=== PATIENT | female | born 1990 | race Caucasian/White ===

== ENCOUNTER 2019-12-10 10:48 | Outpatient (CLI) | payer MEDICAID ==
--- NOTE | 2019-12-10 11:38 | Non Stress Test Report ---
Non Stress Test Datetime Report Generated by CPN: 12/10/2019 11:37 DEMOGRAPHIC EGA NST: 36.5 MONITORING Monitor Explained: Monitor Explained; Test Explained; Patient Verbalized Understanding Time on Monitor: 12/10/2019 11:05 Time off Monitor: 12/10/2019 11:26 NST Duration: 21 NST INTERVENTIONS NST Interventions: PO Hydration Physician Notified NST: J.Islas, CNM BABY A: [id number] BABY A Movement : Present Contraction Frequency : None FHR Baseline : 150 Accelerations : 15X15 Decelerations : None Variability : Moderate 6-25bpm NST Review: Meets Criteria for Reactive NST NST Review and Verified By : Ida Camp RNC NST Results: Reactive NST REPORT Report Trigger: Send Report
== END 2019-12-10 11:38 | disposition home or self-care (01) ==
LOC: LC 10:48
PROVIDERS: ATTEND Obstetrics & Gynecology
DX: O24.415 Gestational diabetes mellitus in pregnancy, controlled by oral hypoglycemic drugs (principal); Z3A.36 36 weeks gestation of pregnancy
CPT/HCPCS: 59025; 87081

== ENCOUNTER 2020-01-07 14:57 | Outpatient (CLI) | payer MEDICAID ==
--- NOTE | 2020-01-07 15:54 | Non Stress Test Report ---
Non Stress Test Datetime Report Generated by CPN: 01/07/2020 15:54 DEMOGRAPHIC EGA NST: 40.5 INDICATION Indication for Study (NST) Other: GDM VITAL SIGNS Temperature - NST: 98.4 Pulse - NST: 74 RESP - NST: 18 NBPSYS NST: 106 NBPDIA NST: 56 MONITORING Monitor Explained: Monitor Explained; Test Explained; Patient Verbalized Understanding Time on Monitor: 01/07/2020 15:23 Time off Monitor: 01/07/2020 15:44 NST Duration: 21 NST INTERVENTIONS NST Interventions: None Physician Notified NST: P.Liriano,CNM BABY A: [id number] BABY A Movement : Present Contraction Frequency : 3-4 FHR Baseline : 145 Accelerations : 15X15 Decelerations : None Variability : Moderate 6-25bpm NST Review: Meets Criteria for Reactive NST NST Review and Verified By : Sean Landeros RN NST Results: Reactive NST REPORT Report Trigger: Send Report
== END 2020-01-07 15:49 | disposition home or self-care (01) ==
LOC: LC 14:57
PROVIDERS: ATTEND Obstetrics & Gynecology Gynecology
DX: O24.419 Gestational diabetes mellitus in pregnancy, unspecified control (principal); Z3A.40 40 weeks gestation of pregnancy
CPT/HCPCS: 59025

== ENCOUNTER 2020-01-08 06:05 | Inpatient (IN) | payer MEDICAID ==
[2020-01-08 07:10] LABS: APPEARANCE,URINE CLOUDY; BILIRUBIN,URINE NEGATIVE (NEGATIVE); COLOR,URINE YELLOW; GLUCOSE, URINE NEGATIVE (NEGATIVE); KETONES,URINE NEGATIVE (NEGATIVE); LEUKOCYTE ESTERASE,URINE SMALL (NEGATIVE); NITRITE,URINE NEGATIVE (NEGATIVE); PROTEIN,URINE NEGATIVE (NEGATIVE); URINE SPECIFIC GRAVITY 1.018; UROBILINOGEN,URINE NEGATIVE mg/dL (<2.0)
[2020-01-08 07:49] LABS: URINE AMPHETAMINES SCREEN NEGATIVE; URINE BARBITURATES SCREEN NEGATIVE; URINE BENZODIAZEPINES SCREEN NEGATIVE; URINE COCAINE SCREEN NEGATIVE; URINE METHADONE SCREEN NEGATIVE; URINE PHENCYCLIDINE SCREEN NEGATIVE
[2020-01-08 07:55] LABS: URINE MARIJUANA (THC) SCREEN UNCONFIRMED POSITIVE
[2020-01-08] MEDS ORDERED: ROPIVACAINE HCL 0.2% INJ/PF (2 MG/ML) 20 ML SDV ONE (08:15)
[2020-01-08] MEDS ORDERED: MISOPROSTOL 0.2 MG TABLET ONE (08:15)
[2020-01-08] MEDS ORDERED: FENTANYL/BUPIVACAINE/NS/PF 300 MCG/150 ML RTUINJ EPI ONE (08:15)
[2020-01-08] MEDS ORDERED: OXYTOCIN/0.9 % SODIUM CHLORIDE 30 UNIT/500 ML RTUINJ ONE (08:15)
[2020-01-08] MEDS ORDERED: LIDOCAINE 1% INJ-PF (10 MG/ML) 30 ML SDV ONE (08:15)
[2020-01-08] MEDS ORDERED: EPHEDRINE SULFATE INJ 50 MG/1 ML AMPULE ONE (08:15)
[2020-01-08] MEDS ORDERED: RINGERS SOLUTION,LACTATED 1,000 ML IV ONE (08:25)
[2020-01-08] MEDS ORDERED: RINGERS SOLUTION,LACTATED 1,000 ML IV PRN (08:25)
[2020-01-08 09:19] LABS: ABSOLUTE BASOPHILS # (AUTO) 0.1 10^3/uL (0.0-0.2); ABSOLUTE LYMPHOCYTES (AUTO) 1.3 10^3/uL (0.5-4.7); ABSOLUTE MONOCYTES (AUTO) 0.8 10^3/uL (0.1-1.4); ABSOLUTE NEUT (AUTO) 15.6 10^3/uL (1.7-8.2); BASOPHILS % (AUTO) 0.5 % (0-2); EOSINOPHILS % (AUTO) 0.2 % (0-6); HEMATOCRIT 38.9 % (36.0-47.0); HEMOGLOBIN 13.2 g/dL (12.0-15.5); LYMPHOCYTES % (AUTO) 7.2 % (13-45); MEAN CORPUSCULAR VOLUME 86 fl (80-97); MONOCYTES % (AUTO) 4.6 % (3-13); PLATELET COUNT 168 10^3/uL (150-450); RED BLOOD COUNT 4.55 10^6/uL (3.72-5.28); RED CELL DISTRIBUTION WIDTH 15.9 % (11.5-14.0); SEGMENTED NEUTROPHILS % (AUTO) 87.5 % (42-78); TOTAL CELLS COUNTED % (AUTO) 100 %; WHITE BLOOD COUNT 17.8 10^3/uL (4.0-10.5)
--- NOTE | 2020-01-08 09:23 | Admission Physical ---
Datetime Report Generated by CPN: 01/08/2020 09:22 CURRENT ADMISSION Chief Complaint: Uterine Contractions Indication for Induction: Not Applicable Admit Impression : Postterm, Intrauterine ; Active Labor Admit Plan: Admit to Unit; Initiate Labor Protocol Admit Plan- Other: GBS neg GDMA2, glyburide 2.5mg ALLERGIES Medication Allergies: No Medication Allergies: No Known Allergies (01/08/2020) Latex: No Latex Allergies OBSTETRICAL HISTORY EDC: 01/02/2020 00:00 : 3 Para: 1 Term: 1 SAB: 1 Gestational Diabetes: Yes Rh Sensitization: No Incompetent Cervix: No LETICIA: No Infertility: No ART Treatment: No Uterine Anomaly: No IUGR: No Hx Previous C/S: No Macrosomia: No Hx Loss/Stillborn: No PIH: No Hx : No Placenta Previa/Abruption: No Depression/PP Depression: No PTL/PROM: No Post Hemorrhage: No Current Procedures: Ultrasound; NST Obstetrical History Comments: G1-11/12/2013, Vaginal, Male, 41weeks G2-SAB 06/14/2018 G3-Current SEE RECORDS Alcohol: No Marijuana : No Cocaine: No Other Illicit Drugs: No Cigarettes: Current Everyday Smoker. [id number] Cigarette Frequency: 5 - 10 per day Advised to Stop: Yes MEDICAL HISTORY Diabetes: Yes Diabetes Type: Gestational Diabetes Blood Transfusion: No Pulmonary Disease (Asthma, TB): No Breast Disease: No Hypertension: No Chemistry Quality Control Technician Surgery: No Heart Disease: No Hosp/Surgery: No Autoimmune Disorder: No Anesthetic Complications: No Kidney Disease: No Abnormal Pap Smear: No Neuro/Epilepsy: No Psychiatric Disorders: No Other Medical Diseases: No Hepatitis/Liver Disease: No Significant Family History: No Varicosities/Phlebitis: No Trauma/Violence : No Thyroid Dysfunction: No INFECTIOUS HISTORY Gonorrhea: No Genital Herpes: No Chlamydia: No Tuberculosis: No Syphilis: No Hepatitis: No HIV/AIDS Exposure: No Rash or Viral Illness: No HPV: No PHYSICAL EXAM General: Normal HEENT: Deferred Neurologic: Normal Thyroid: Deferred Heart: Normal Lungs: Normal Breast: Deferred Back: Normal Abdomen: Normal Genitourinary Exam: Normal Extremities: Normal DTRs: Deferred Pelvic Type: Adequate Vital Signs: Reviewed VAGINAL EXAM Dilatation: 4 Effacement: 60 Station: -2 FETUS A EGA: 40.6 Monitoring: External US FHR- Baseline: 135 Variability: Moderate 6-25bpm Accelerations: 15X15 Decelerations: Late FHR Category: Category II FHR Comments: occasional lates Presentation: Vertex Admit Comment: Plans epidural GDM A2 on Glyburide 2.5mg q hs GBS neg Morbid obesity BMI 48 +THC at NOB Smoker Rubella non-immune PLANS FOR LABOR AND DELIVERY Labor and Delivery: None Pain Management: Medications Feeding Preference: Formula INFORMED CONSENT Assignment: Jennifer Gordillo MD Signature: with User ID: Catrachita : with User ID: [email or web address]
--- NOTE | 2020-01-08 12:43 | Delivery Summary ---
Del Sum A-C Datetime Report Generated by CPN: 01/08/2020 12:42 DELIVERY PERSONNEL DELIVERY PERSONNEL: [id number] Delivery Doctor:: Amaris Cortez CNM Labor and Delivery Nurse:: Cheryl Knowles RNadoption agent Nurse:: Sarah Beth Balbuena RN Nursery Nurse:: Marybeth Valenzuela RN Riveter/TRAVELING SECRETARY: Sherron Ly CNA II MATERNAL INFORMATION Delivery Anesthesia: Epidural Medications After Delivery: Pitocin 30 Units in 500ml NS/D5W Estimated Blood Loss (ml): 150 Maternal Complications: None LABOR SUMMARY EDC: 01/02/2020 00:00 No. Babies in Womb: 1 Attempted: No Labor Anesthesia: Epidural LABOR INFORMATION Reason for Induction: Not Applicable Complete Dilatation: 01/08/2020 11:25 Cervical Ripening Agents: Other Oxytocin: N/A Group B Beta Strep: 1 NO GROUP B STREPTOCOCCUS RECOVERED Steroids Given: None Reason Steroids Not Administered: Not Applicable MEMBRANES Membranes Rupture Method: Spontaneous Rupture of Membranes: 01/08/2020 10:31 Length of Rupture (hr): 1.37 Amniotic Fluid Color: Moderate Meconium Amniotic Fluid Amount: Small STAGES OF LABOR Stage 2 hr: 0 Stage 2 min: 28 Stage 3 hr: 0 Stage 3 min: 20 VAGINAL DELIVERY Episiotomy: None Laceration #1: None Laceration Extension #1: N/A Laceration Repair: Not Applicable Sharps Count Correct: Yes BABY A INFORMATION Infant Delivery Date/Time: 01/08/2020 11:53 Method of Delivery: Vaginal Nurse Controlled Delivery: No Born in Route : No : N/A Forceps: N/A Vacuum Extraction: N/A Shoulder Dystocia : No PRESENTATION/POSITION BABY A Presentation: Cephalic Cephalic Presentation: Vertex Vertex Position: Right Occipital Anterior Breech Presentation: N/A PLACENTA INFORMATION BABY A Placenta Delivery Time : 01/08/2020 12:13 Placenta Method of Delivery: Spontaneous Placenta Status: Delivered SCORES BABY A Heart Rate 1 min: >100 bpm Resp Effort 1 min: Good Cry Reflex Irritability 1 min: Cough or Sneeze or Pulls Away Muscle Tone 1 min: Active Motion Color 1 min: Blue/Pale SCORE 1 MIN: 8 Heart Rate 5 min: >100 bpm Resp Effort 5 min: Good Cry Reflex Irritability 5 min: Cough or Sneeze or Pulls Away Muscle Tone 5 min: Active Motion Color 5 min: Body [place], Extremities Blue SCORE 5 MIN: 9 INFANT INFORMATION BABY A Gestational Age at Delivery: 40.0 Gestational Status: Full Term- 39- 40.6 Weeks Infant Outcome : Liveborn Infant Condition : Stable Infant Sex: Female IDENTIFICATION BABY A Infant Verification Date/Time: 01/08/2020 12:02 ID Band Number: [id number] Mother's Name Verified: Yes RN Verifying Infant: Michael Eleni RN Additional Verifying Personnel: Golden Ly BUSINESS ETHICS PROFESSOR CORD INFORMATION BABY A No. Cord Vessels: 3 Nuchal Cord : Around Neck x2, Loose Nuchal Cord- Other: Triple Nuchal plus Body cord Cord Blood Taken: Yes-For Storage (Mom's Blood type +) ASSESSMENT BABY A Infant Complications: None Physical Findings at Delivery: Within Normal Limits Respirations: Appears Normal Transferred To: [facility] BABY B INFORMATION : N/A SIGNATURES : I was personally available for consultation and serving as supervising physician for the MLP.
[2020-01-08] MEDS ORDERED: ZOLPIDEM TARTRATE 5 MG TABLET PO PRN (12:46)
[2020-01-08] MEDS ORDERED: PROMETHAZINE HCL 25 MG SUPP.RECT PR PRN (12:46)
[2020-01-08] MEDS ORDERED: DIPHENHYDRAMINE HCL 25 MG CAPSULE PO PRN (12:46)
[2020-01-08] MEDS ORDERED: DIBUCAINE 1% OINTMENT 28 GM TP PRN (12:46)
[2020-01-08] MEDS ORDERED: OXYTOCIN/0.9 % SODIUM CHLORIDE 30 UNIT/500 ML RTUINJ IV PRN (12:46)
[2020-01-08] MEDS ORDERED: PROMETHAZINE HCL 25 MG TABLET PO PRN (12:46)
[2020-01-08] MEDS ORDERED: PROMETHAZINE HCL INJ 25 MG/1 ML VIAL IV PRN (12:46)
[2020-01-08] MEDS ORDERED: GLYCERIN/WITCH HAZEL LEAF 1 EACH MED..WIPE TP PRN (12:46)
[2020-01-08] MEDS ORDERED: MAGNESIUM HYDROXIDE SUSP 30 ML UDCUP PO PRN (12:46)
[2020-01-08] MEDS ORDERED: DIPH/PERTUSS(ACELL)/TETANUS VAC/PF 0.5 ML SYR (>=10YO) IM PRN (12:46)
[2020-01-08] MEDS ORDERED: MEASLES,MUMPS&RUBELLA VACC/PF 0.5 ML VIAL SUBCUT PRN (12:46)
[2020-01-08] MEDS ORDERED: BENZOCAINE/MENTHOL AEROSOL SPRAY 56 ML TOP PRN (12:46)
[2020-01-08] MEDS ORDERED: PSEUDOEPHEDRINE HCL 30 MG TABLET PO PRN (12:46)
[2020-01-08] MEDS: IBUPROFEN 800 MG TABLET PO SCH ×2 (14:55→22:15)
[2020-01-08] MEDS: DOCUSATE SODIUM 100 MG CAPSULE PO SCH (17:38)
[2020-01-08] MEDS: FERROUS SULFATE 325 MG TABLET PO SCH (17:38)
[2020-01-08] MEDS: NYSTATIN/TRIAMCIN CREAM 15 GM TP SCH ×2 (18:36→22:16)
[2020-01-08] MEDS: FAMOTIDINE 20 MG TABLET PO SCH (22:15)
[2020-01-09] MEDS: IBUPROFEN 800 MG TABLET PO SCH ×2 (05:49→14:35)
[2020-01-09 08:22] VITALS: BP 131/63
[2020-01-09 08:36] LABS: HEMATOCRIT 36.4 % (36.0-47.0); HEMOGLOBIN 12.3 g/dL (12.0-15.5); MEAN CORPUSCULAR HEMOGLOBIN 28.9 pg (27.0-33.4); MEAN CORPUSCULAR HGB CONC 33.8 g/dL (32.0-36.0); MEAN CORPUSCULAR VOLUME 86 fl (80-97); PLATELET COUNT 181 10^3/uL (150-450); RED BLOOD COUNT 4.26 10^6/uL (3.72-5.28); RED CELL DISTRIBUTION WIDTH 15.6 % (11.5-14.0); WHITE BLOOD COUNT 15.3 10^3/uL (4.0-10.5)
[2020-01-09] MEDS: FAMOTIDINE 20 MG TABLET PO SCH (09:49)
[2020-01-09] MEDS: FERROUS SULFATE 325 MG TABLET PO SCH ×2 (09:49→17:49)
[2020-01-09] MEDS: DOCUSATE SODIUM 100 MG CAPSULE PO SCH ×2 (09:49→17:49)
[2020-01-09] MEDS: NYSTATIN/TRIAMCIN CREAM 15 GM TP SCH ×3 (09:49→17:58)
[2020-01-09] MEDS ORDERED: PRENATAL VITAMIN W DHA CAPSULE PO SCH (10:00)
--- NOTE | 2020-01-09 11:55 | PDOC PROGRESS REPORT ---
Subjective-OB Progress Note for:: 01/09/20 Subjective: 29yo G3 now P2 s/p ppd 1. Reports pain well controlled by medication, ambulating and voiding without difficulty no concerns today. Physical Exam (OB) Vital Signs: Temp Pulse Resp BP Pulse Ox 97.9 F 73 16 131/63 H 100 01/09/20 08:09 01/09/20 08:09 01/09/20 08:09 01/09/20 08:09 01/09/20 08:09 Intake & Output 01/08/20 01/09/20 01/10/20 06:59 06:59 06:59 Intake Total 400 Balance 400 Weight 138.1 kg - General General Appearance: Appears well In distress: None - PIH/Pre-Eclampsia DTR's: 2 + Clonus: Negative Headache: Absent Epigastric Pain: No Visual Changes: No - Maternal Morbidity 59. Maternal Morbidity (serious complications experinced by the mother associated with labor and delivery: None of the above - Episiotomy/Laceration Site Condition: N/A - Lochia Lochia Amount: Small 10-25 ml Lochia Color: Rubra/Red - Abdomen Description: Soft, Round Hernia Present: No Fundal Description: Firm, Midline Fundal Height: u/u - u/2 - Respiratory Respiratory Status: No respiratory distress - Abdominal Inspection: Normal - Genitourinary Female External exam: Normal - Extremities Upper extremity: Normal inspection Lower extremities: Normal inspection - Neurological Cognition: Normal Orientation: AAOx4 - Psychological Associated symptoms: Normal affect, Normal mood Objective-Diagnostic Laboratory: 01/09/20 08:04 01/09/20 08:04 WBC 15.3 H RBC 4.26 Hgb 12.3 Hct 36.4 MCV 86 MCH 28.9 MCHC 33.8 RDW 15.6 H Plt Count 181 Assessment and Plan(PN) - Assessment and Plan (1) Drug use affecting Qualifiers: Trimester: unspecified trimester Qualified Code(s): O99.320 - Drug use complicating , unspecified trimester Is this a current diagnosis for this admission?: Yes Plan: cessation encouraged, discharge planning consult placed (2) Active labor at term Is this a current diagnosis for this admission?: Yes Plan: delivered (3) GDM, class A2 Is this a current diagnosis for this admission?: Yes Plan: delivered, fasting pp glucose as indicated by guidelines (4) Obesity affecting in third trimester Is this a current diagnosis for this admission?: Yes Plan: delivered (5) Post-dates , delivered, current hospitalization Is this a current diagnosis for this admission?: Yes Plan: delivered (6) Vaginal delivery Is this a current diagnosis for this admission?: Yes Plan: routine pp care - Time Spent with Patient Time with patient: Less than 15 minutes Smoking Education Provided: Over 3 minutes Medications reviewed and adjusted accordingly: Yes - Disposition Anticipated Discharge Disposition: Home, Self Care Anticipated Discharge Timeframe: within 24 hours
--- NOTE | 2020-01-09 16:51 | PDOC DISCHARGE SUMMARY ---
Impression - Admit/DC Date/PCP Admission Date/Primary Care Provider: 01/08/20 07:34 RENETTA CHAN MD Discharge Date: 01/09/20 - pt desires early discharge baby discharged by peds - Discharge Diagnosis (1) Drug use affecting Is this a current diagnosis for this admission?: Yes (2) Active labor at term Is this a current diagnosis for this admission?: Yes (3) GDM, class A2 Is this a current diagnosis for this admission?: Yes (4) Obesity affecting in third trimester Is this a current diagnosis for this admission?: Yes (5) Post-dates , delivered, current hospitalization Is this a current diagnosis for this admission?: Yes (6) Vaginal delivery Is this a current diagnosis for this admission?: Yes - Assessment Summary: ppd 1 stable and desires early discharge, understands warning s/s and reasons to rtc/[facility] - Additional Information Resuscitation Status: Full Code Discharge Diet: As Tolerated, Regular Discharge Activity: Activity As Tolerated, Balance Activity w/Rest, No Lifting Over 10 Pounds, Pelvic Rest, No tub bath, Walk Frequently Referrals: RENETTA CHAN MD [Primary Care Provider] - Prescriptions: Ibuprofen [Motrin 800 mg Tablet] 800 mg PO Q8HP PRN #20 tablet PRN Reason: Abdominal Cramping Home Medications: No.137/Iron/Folic Acd [ Vitamin Tablet] 1 each PO DAILY 11/10/13 Ibuprofen [Motrin 800 mg Tablet] 800 mg PO Q8HP PRN #20 tablet 01/09/20 Hospital Course 59. Maternal Morbidity (serious complications experinced by the mother associated with labor and delivery: None of the above Results Laboratory Results: WBC 15.3 10^3/uL (4.0-10.5) H 01/09/20 08:04 RBC 4.26 10^6/uL (3.72-5.28) 01/09/20 08:04 Hgb 12.3 g/dL (12.0-15.5) 01/09/20 08:04 Hct 36.4 % (36.0-47.0) 01/09/20 08:04 MCV 86 fl (80-97) 01/09/20 08:04 MCH 28.9 pg (27.0-33.4) 01/09/20 08:04 MCHC 33.8 g/dL (32.0-36.0) 01/09/20 08:04 RDW 15.6 % (11.5-14.0) H 01/09/20 08:04 Plt Count 181 10^3/uL (150-450) 01/09/20 08:04 Lymph % (Auto) 7.2 % (13-45) L 01/08/20 08:49 [place] % (Auto) 4.6 % (3-13) 01/08/20 08:49 Eos % (Auto) 0.2 % (0-6) 01/08/20 08:49 Baso % (Auto) 0.5 % (0-2) 01/08/20 08:49 Absolute Neuts (auto) 15.6 10^3/uL (1.7-8.2) H 01/08/20 08:49 Absolute Lymphs (auto) 1.3 10^3/uL (0.5-4.7) 01/08/20 08:49 Absolute Monos (auto) 0.8 10^3/uL (0.1-1.4) 01/08/20 08:49 Absolute Eos (auto) 0.0 10^3/uL (0.0-0.6) 01/08/20 08:49 Absolute Basos (auto) 0.1 10^3/uL (0.0-0.2) 01/08/20 08:49 Seg Neutrophils % 87.5 % (42-78) H 01/08/20 08:49 Urine Color YELLOW 01/08/20 06:45 Urine Appearance CLOUDY 01/08/20 06:45 Urine pH 7.0 (5.0-9.0) 01/08/20 06:45 Ur Specific [place] 1.018 01/08/20 06:45 Urine Protein NEGATIVE mg/dL (NEGATIVE) 01/08/20 06:45 Urine Glucose (UA) NEGATIVE mg/dL (NEGATIVE) 01/08/20 06:45 Urine Ketones NEGATIVE mg/dL (NEGATIVE) 01/08/20 06:45 Urine Blood SMALL (NEGATIVE) H 01/08/20 06:45 Urine Nitrite NEGATIVE (NEGATIVE) 01/08/20 06:45 Urine Bilirubin NEGATIVE (NEGATIVE) 01/08/20 06:45 Urine Urobilinogen NEGATIVE mg/dL (<2.0) 01/08/20 06:45 Ur Leukocyte Esterase SMALL (NEGATIVE) H 01/08/20 06:45 Urine Ascorbic Acid NEGATIVE (NEGATIVE) 01/08/20 06:45 Membranes Rupture NEGATIVE (NEGATIVE) 01/08/20 05:30 Urine Opiates Screen NEGATIVE 01/08/20 06:45 Urine Methadone Screen NEGATIVE 01/08/20 06:45 Ur Barbiturates Screen NEGATIVE 01/08/20 06:45 Ur Phencyclidine Scrn NEGATIVE 01/08/20 06:45 Ur Amphetamines Screen NEGATIVE 01/08/20 06:45 U Benzodiazepines Scrn NEGATIVE 01/08/20 06:45 Urine Cocaine Screen NEGATIVE 01/08/20 06:45 U Marijuana (THC) Screen UNCONFIRMED POSITIVE 01/08/20 06:45 RPR NONREACTIVE (NONREACTIVE) 01/08/20 08:49 Blood Type A POSITIVE 01/08/20 08:49 Antibody Screen NEGATIVE 01/08/20 08:49
== END 2020-01-09 18:24 | disposition home or self-care (01) | DRG 806 ==
LOC: LC 06:05 → LR 07:34 → 2S 14:46
PROVIDERS: ADMIT Obstetrics & Gynecology; ATTEND Obstetrics & Gynecology
PROC: 10E0XZZ Delivery of Products of Conception, External Approach (ICD-10-PCS; principal; 2020-01-08)
DX: O48.0 Post-term pregnancy (principal); O99.324 Drug use complicating childbirth; Z37.0 Single live birth; O99.334 Smoking (tobacco) complicating childbirth; O24.425 Gestational diabetes mellitus in childbirth, controlled by oral hypoglycemic drugs; F12.90 Cannabis use, unspecified, uncomplicated; F17.210 Nicotine dependence, cigarettes, uncomplicated; O77.0 Labor and delivery complicated by meconium in amniotic fluid; O69.81X0 Labor and delivery complicated by cord around neck, without compression, not applicable or unspecified; O69.89X0 Labor and delivery complicated by other cord complications, not applicable or unspecified; O99.214 Obesity complicating childbirth; E66.9 Obesity, unspecified; Z3A.40 40 weeks gestation of pregnancy
CPT/HCPCS: 1967; 36415; 80307; 80349; 81005; 84112; 85025; 85027; 86592; 86850; 86900; 86901; 94760; C1758; G0480; J2590; J2795; J3010; J3490

== ENCOUNTER 2020-05-28 18:55 | Emergency (ER) | payer MEDICAID ==
[2020-05-28 19:13] VITALS: BP 150/85
--- NOTE | 2020-05-28 19:45 | ER Document Report ---
ED Medical Screen (RME) - General Chief Complaint: Abdominal Pain Stated Complaint: ABDOMINAL PAIN Time Seen by Provider: 05/28/20 19:42 Notes: Patient presents complaining of epigastric abdominal pain that radiates through to her back and up to her shoulder. Patient states pain has been for about a week. Patient denies any fever, cough or urinary symptoms. Patient denies any significant medical history. I have greeted and performed a rapid initial assessment of this patient. A comprehensive ED assessment and evaluation of the patient, analysis of test results and completion of the medical decision making process will be conducted by additional ED providers. - Related Data Allergies/Adverse Reactions: No Known Allergies Allergy (Verified 05/28/20 19:41) Past Medical History - Immunizations Immunizations up to date: Yes Hx Diphtheria, Pertussis, Tetanus Vaccination: Yes Physical Exam - Vital signs Vitals: Temp Pulse Resp BP Pulse Ox 98.2 F 66 20 150/85 H 99 05/28/20 19:10 05/28/20 19:10 05/28/20 19:10 05/28/20 19:10 05/28/20 19:10 - Abdominal Tenderness: Tender - epigastric Course - Vital Signs Vital signs: Temp Pulse Resp BP Pulse Ox 98.2 F 66 20 150/85 H 99 05/28/20 19:10 05/28/20 19:10 05/28/20 19:10 05/28/20 19:10 05/28/20 19:10
[2020-05-28 21:21] LABS: ABSOLUTE BASOPHILS # (AUTO) 0.1 10^3/uL (0.0-0.2); ABSOLUTE EOSINOPHILS # (AUTO) 0.2 10^3/uL (0.0-0.6); ABSOLUTE LYMPHOCYTES (AUTO) 1.8 10^3/uL (0.5-4.7); ABSOLUTE MONOCYTES (AUTO) 0.6 10^3/uL (0.1-1.4); BASOPHILS % (AUTO) 0.6 % (0-2); EOSINOPHILS % (AUTO) 1.3 % (0-6); HEMATOCRIT 39.4 % (36.0-47.0); HEMOGLOBIN 13.4 g/dL (12.0-15.5); LYMPHOCYTES % (AUTO) 15.3 % (13-45); MEAN CORPUSCULAR HEMOGLOBIN 28.8 pg (27.0-33.4); MEAN CORPUSCULAR HGB CONC 34.1 g/dL (32.0-36.0); MEAN CORPUSCULAR VOLUME 85 fl (80-97); PLATELET COUNT 257 10^3/uL (150-450); RED BLOOD COUNT 4.67 10^6/uL (3.72-5.28); RED CELL DISTRIBUTION WIDTH 13.8 % (11.5-14.0); SEGMENTED NEUTROPHILS % (AUTO) 77.8 % (42-78); TOTAL CELLS COUNTED % (AUTO) 100 %; WHITE BLOOD COUNT 11.5 10^3/uL (4.0-10.5)
[2020-05-28 21:35] LABS: ALBUMIN 3.9 g/dL (3.5-5.0); ALKALINE PHOSPHATASE 94 U/L (38-126); ANION GAP 10 (5-19); APPEARANCE,URINE CLOUDY; ASPARTATE AMINO TRANSFERASE 289 U/L (14-36); BILIRUBIN,DIRECT 0.4 mg/dL (0.0-0.4); BILIRUBIN,TOTAL 0.9 mg/dL (0.2-1.3); BILIRUBIN,URINE NEGATIVE (NEGATIVE); BLOOD UREA NITROGEN 9 mg/dL (7-20); CALCIUM 9.1 mg/dL (8.4-10.2); CARBON DIOXIDE 21 mmol/L (22-30); CHLORIDE 108 mmol/L (98-107); COLOR,URINE YELLOW; GLUCOSE 106 mg/dL (75-110); GLUCOSE, URINE NEGATIVE (NEGATIVE); KETONES,URINE NEGATIVE (NEGATIVE); LEUKOCYTE ESTERASE,URINE NEGATIVE (NEGATIVE); NITRITE,URINE NEGATIVE (NEGATIVE); POTASSIUM 4.1 mmol/L (3.6-5.0); PROTEIN,URINE NEGATIVE (NEGATIVE); URINE SPECIFIC GRAVITY 1.025
--- NOTE | 2020-05-28 23:02 | RADIOLOGY REPORT (SQ) ---
EXAM DESCRIPTION: U/S ABDOMEN LIMITED W/O DOP RadLex: US ABDOMEN LIMITED CLINICAL HISTORY: 29 years Female; upper abd pain; TECHNIQUE: Right upper quadrant ultrasound was performed. COMPARISON: None. FINDINGS: Pancreas: Visualized portions are unremarkable. Liver: 20 cm long. No ductal distention. Portal venous flow is hepatopedal, normal. Gallbladder: Filled with shadowing calculi. No Altman sign. No pericholecystic fluid. Common bile duct: 3 mm. Right kidney: 14 x 8 x 5 cm. No hydronephrosis. Visualized portion of aorta is unremarkable. IVC patent. IMPRESSION: 1. Cholelithiasis. No sonographic evidence for acute cholecystitis. 2. No biliary ductal distention.
== END 2020-05-28 22:53 | disposition left against medical advice (07) ==
LOC: ER 18:55
DX: K80.20 Calculus of gallbladder without cholecystitis without obstruction (principal); R10.13 Epigastric pain; R10.816 Epigastric abdominal tenderness; Z53.20 Procedure and treatment not carried out because of patient's decision for unspecified reasons
CPT/HCPCS: 36415; 76705; 80053; 81001; 83690; 84703; 85025; 99281